=== PATIENT | male | born 1975 ===

== ENCOUNTER → 2024-11-19 08:10 | Outpatient (REF) | payer OTHER, SELFPAY | LOC: RCS 08:10 | PROVIDERS: ATTENDING PHYSICIAN Student in an Organized Health Care Education/Training Program; FAMILY PHYSICIAN Physician Assistant | DX: I37.0 Nonrheumatic pulmonary valve stenosis (principal); E78.5 Hyperlipidemia, unspecified | CPT/HCPCS: 93306 ==